=== PATIENT | male | born 1985 | race Caucasian/White ===

== ENCOUNTER 2022-02-18 19:27 | Emergency (ER) | payer BC ==
[2022-02-18] MEDS ORDERED: Lidocaine 1% 10 ML MDV INJECT ONE (19:38)
[2022-02-18] MEDS ORDERED: Diphtheria,Pertussis(Acell),Tetanus Vaccine 0.5 ML Syringe IM ONE (19:42)
== END 2022-02-18 20:40 | disposition home or self-care (01) ==
LOC: JD.ED 19:27
DX: S61.412A Laceration without foreign body of left hand, initial encounter (principal); Z23 Encounter for immunization; W26.8XXA Contact with other sharp object(s), not elsewhere classified, initial encounter
CPT/HCPCS: 12001; 90471; 90715; 99282-25